=== PATIENT | male | born 1955 | race Caucasian/White ===

== ENCOUNTER 2019-04-18 20:28 | Emergency (ER) | payer OTHER, SELFPAY ==
[2019-04-18 20:33] VITALS: BP 125/81; PULSE 80; RESP 20; TEMP 36.4; O2SAT 98
[2019-04-18] MEDS: LIDOCAINE 1% (PF) 2 ML (21:11)
--- NOTE | 2019-04-18 21:35 | ED.WOUNDLAC ---
HPI - Wound/Laceration General Chief Complaint: Wound/Laceration Stated Complaint: Sliver Time Seen by Provider: 04/18/19 20:35 Source: patient Mode of arrival: ambulatory Limitations: no limitations History of Present Illness HPI narrative: 64-year-old male former smoker with noncontributory medical history presents with an accidental sliver on the volar surface of left forearm. He was working with o'clock we claimed would and felt a sliver puncture his forearm, he says it was imbedded below the surface of the skin and he was able to remove a small portion but feels as if some is still in his arm. He has full range of motion and denies any numbness, tingling or weakness. He states his tetanus is up-to-date Onset (ago): hour(s) Extremity Location: Left: forearm Body four view annotation: 1. Patient tetanus UTD: Yes Context: accidental Associated symptoms: pain Related Data Home Medications Medication Instructions Recorded Confirmed multivitamin [Multiple Vitamins] 1 tab PO QDAY #0 11/04/16 03/28/18 Previous Rx's Medication Instructions Recorded pregabalin [Lyrica] 50 mg PO BID #60 cap 08/05/17 pregabalin [Lyrica] 100 mg PO BID #60 cap 08/05/17 zonisamide 25 mg PO SEE INSTRUCTIONS #24 cap 08/10/17 doxycycline hyclate 100 mg PO BID #20 tab 04/18/19 Allergies Allergy/AdvReac Type Severity Reaction Status Date / Time Penicillins Allergy Severe ANAPHYLAXIS Verified 03/28/18 12:08 Review of Systems Constitutional Constitutional: Denies chills, Denies fatigue, Denies fever(s), Denies frequent falls, Denies lethargy and Denies weakness Eyes Eyes: Denies change in vision, Denies eye discharge, Denies irritation and Denies loss of vision ENT Ears, Nose, Mouth, and Throat: Denies change in voice, Denies dizziness, Denies neck pain, Denies sore throat and Denies throat swelling Cardiovascular Cardiovascular: Denies chest pain, Denies irregular heart rhythm, Denies lightheadedness, Denies palpitations, Denies dyspnea, Denies dyspnea on exertion and Denies orthopnea Respiratory Respiratory: Denies cough, Denies dyspnea, Denies dyspnea on exertion and Denies wheezing Gastrointestinal Gastrointestinal: Denies abdominal pain, Denies change in bowel habits, Denies diarrhea, Denies nausea and Denies vomiting Genitourinary Genitourinary: Denies hematuria, Denies flank pain, Denies urinary incontinence and Denies urinary urgency Musculoskeletal Musculoskeletal: Denies back pain, Denies muscle weakness, Denies neck pain, Denies numbness and Denies tingling Integumentary/Breasts Skin/Breast: Denies pruritus, Denies erythema, Denies rash and Reports wounds Neurologic Neurologic: Denies behavioral changes, Denies confusion, Denies dizziness, Denies frequent falls, Denies loss of vision, Denies numbness, Denies tingling and Denies weakness Psychiatric Psychiatric: Denies anxiety, Denies behavioral changes, Denies confusion, Denies depression, Denies homicidal ideation and Denies suicidal ideation Endocrine Endocrine: Denies fatigue, Denies flushing and Denies palpitations Hematologic/Lymphatic Hematologic/Lymphatic: Denies easy bruising Allergic/Immunologic Allergic/Immunologic: Denies urticaria, Denies throat swelling and Denies wheezing PFSH Family History (Updated 12/21/16 @ 00:00 by Conversion Provider) Father Diabetes mellitus Heart disease Hypertension High cholesterol Mother Diabetes mellitus High cholesterol Social History Smoking Status: Former smoker Family History Father Diabetes mellitus Heart disease Hypertension High cholesterol Mother Diabetes mellitus High cholesterol Social History Smoking Status: Former smoker Exam Narrative Exam Narrative: GEN: AOx3 and in mild distress EYES: Pupils are equal, round, and reactive to light and accommodation. Extraoccular muscles are intact bilaterally. There is no subconjunctival hemorrhage or exudate. CHEST: Lungs are clear to auscultation bilaterally and free of wheezes, rales, or rhonchi. Heart rate is regular rhythm, there are no murmurs, clicks, rubs, or gallops. There is no chest wall tenderness. ABD: Abdomen is soft and nontender. There is no guarding or rebound. Bowel sounds are normal in all 4 quadrants. There is no mass or organomegaly. EXT: Full painless ROM of all extremities with no loss of sensation or strength. SKIN: 1 cm superficial, linear abrasion on forearm with very small puncture. No palpable foreign body noted. Bedside ultrasound does not show any obvious findings. This is an organic material and will not show up on x-ray. Initial Vital Signs Initial Vital Signs: Vital Signs Temperature 97.5 F L 04/18/19 20:33 Pulse Rate 80 04/18/19 20:33 Respiratory Rate 20 04/18/19 20:33 Blood Pressure 125/81 04/18/19 20:33 Pulse Oximetry 98 04/18/19 20:33 Procedures Foreign Body OTHER Time Out Performed: yes Site: left and upper extremity Description of foreign body: other Technique: removal with forceps and bedside ultrasound guidance Confirmed by:: other (On successful, no foreign body obviously noted) Post-procedure exam: awake, alert Neurovascular: normal distal pulse and no change from pre-procedure Course Orders Ordered: Discontinued Medications Lidocaine/Sodium Bicarbonate (Buffered Lidocaine 5ml Syringe) 5 ml INJ NOW ONE Stop: 04/18/19 21:02 Last Admin: 04/18/19 21:11 Dose: Not Given Documented by: [email or web address] Vital Signs Vital signs: Vital Signs - 8 hr 04/18/19 20:33 04/18/19 21:43 Temperature 97.5 F L Pulse Rate 80 67 Respiratory Rate 20 15 Blood Pressure 125/81 120/82 Pulse Oximetry 98 99 MDM - Wound/Laceration MDM Narrative Medical decision making narrative: 64-year-old male reports organic foreign body (wood splinter) and left forearm. This is not palpable, nor visualized on ultrasound. Area anesthetized and lightly, gently probed with blunt needle and forceps, no foreign body noted. Patient placed on antibiotics and given extensive return precautions which she understands fully. Questions answered to his apparent satisfaction Discharge Plan Departure Patient Disposition: Home Clinical Impression: Splinter in skin Discharge Date/Time: 04/18/19 21:40 Instructions: DI for Puncture Wound Activity Restrictions/Additional Instructions: *You have been diagnosed with [wooden splinter in left forearm] *What to do: *Take medications as directed *Follow up with your primary care provider in 2-3 days, call for an appointment. Let them know you were seen in the Emergency Department and that we ask that you be seen in follow up *Return to ER if you should have any new, worsening or concerning symptoms, such as [worsening pain, redness, swelling, drainage or other bothersome symptoms] Prescriptions: New doxycycline hyclate 100 mg tablet 100 mg PO BID Qty: 20 RF: 0 No Action multivitamin [Multiple Vitamins] 1 EACH tablet 1 tab PO QDAY Qty: 0 RF: 0 pregabalin [Lyrica] 50 MG capsule 50 mg PO BID Qty: 60 RF: 5 pregabalin [Lyrica] 100 MG capsule 100 mg PO BID Qty: 60 RF: 5 zonisamide 25 MG capsule 25 mg PO SEE INSTRUCTIONS Qty: 24 RF: 0 Referrals: Cristela Hameed DO [Primary Care Provider] -
[2019-04-18 21:43] VITALS: BP 120/82; PULSE 67; RESP 15; O2SAT 99
== END 2019-04-18 21:40 | disposition home or self-care (01) ==
PROVIDERS: Emergency Provider Emergency Medicine; PCP Family Medicine
DX: T14.8XXA Other injury of unspecified body region, initial encounter (principal); W45.8XXA Other foreign body or object entering through skin, initial encounter
CPT/HCPCS: 99283

== ENCOUNTER → 2019-10-09 18:35 | Outpatient (CLI) | payer OTHER, SELFPAY ==
[2019-10-09 18:53] LABS: Add Manual Diff / Slide Review NO; Basophils Absolute Auto 100 /uL (0-100); Basophils Percent Auto 0.9 % (0-2); Eosinophils Absolute Auto 200 /uL (0-450); Eosinophils Percent Auto 2.8 % (2-4); Hematocrit 44.1 % (41-53); Lymphocytes Absolute Auto 2100 /uL (1100-4500); Mean Corpuscular Hemoglobin 29.8 PG (26-34); Mean Corpuscular Volume 87.5 fL (80-100); Monocytes Absolute Auto 800 /uL (0-900); Monocytes Percent Auto 9.4 % (3-14); Neutrophils Absolute Auto 5100 /uL (1500-7000); Neutrophils Percent Auto 61.9 % (50-75); Platelet Count 269 X10^3/uL (150-400); Red Blood Cell Count 5.04 X10^6/uL (4.5-5.9); Red Cell Distribution Width 14.9 % (11.6-14.8); White Blood Cell Count 8.2 X10^3/uL (4.5-11.0)
[2019-10-09 19:13] LABS: Alanine Aminotransferase 18 IU/L (<50); Albumin 4.7 g/dL (3.5-5.0); Albumin Globulin Ratio 1.4 (1.0-2.8); Alkaline Phosphatase 64 U/L (38-126); Aspartate Aminotransferase 27 IU/L (17-59); BUN Creatinine Ratio 27.1 (6-22); Bilirubin Total 0.4 mg/dL (0.2-1.3); Blood Urea Nitrogen 19 mg/dL (9-20); Calcium 9.5 mg/dL (8.4-10.2); Carbon Dioxide 27 mmol/L (22-32); Chloride 100 mmol/L (98-107); Estimated Glomerular Filt Rate > 60.0 mL/min (>60); Globulin 3.4 g/dL (1.7-4.1); Glucose 96 mg/dL (80-110); HEMOLYSIS < 15 (0-50); Potassium 4.1 mmol/L (3.4-5.1); Sodium 138 mmol/L (137-145); Total Protein 8.1 g/dL (6.3-8.2)
[2019-10-09 19:44] LABS: Prostate Specific Antigen Scrn 0.649 ng/mL (0.1-4.0)
== END ==
PROVIDERS: PCP Family Medicine; Referring Provider Nurse Practitioner; Visit Provider Nurse Practitioner
DX: N42.81 Prostatodynia syndrome (principal)
CPT/HCPCS: 36415; 80053; 85025; G0103

== ENCOUNTER → 2020-09-12 13:00 | Outpatient (CLI) | payer OTHER, SELFPAY ==
[2020-09-12 13:34] LABS: Add Manual Diff / Slide Review NO; Basophils Absolute Auto 100 /uL (0-100); Basophils Percent Auto 0.7 % (0-2); Eosinophils Absolute Auto 300 /uL (0-450); Eosinophils Percent Auto 3.1 % (2-4); Hematocrit 45.6 % (41-53); Hemoglobin 15.1 g/dL (13.5-17.5); Lymphocytes Absolute Auto 2100 /uL (1100-4500); Lymphocytes Percent Auto 24.4 % (25-40); Mean Corpuscular Hemoglobin 28.8 PG (26-34); Mean Corpuscular Volume 87.3 fL (80-100); Monocytes Absolute Auto 800 /uL (0-900); Monocytes Percent Auto 9.2 % (3-14); Neutrophils Absolute Auto 5500 /uL (1500-7000); Neutrophils Percent Auto 62.6 % (50-75); Platelet Count 236 X10^3/uL (150-400); Red Blood Cell Count 5.23 X10^6/uL (4.5-5.9); Red Cell Distribution Width 15.3 % (11.6-14.8); White Blood Cell Count 8.8 X10^3/uL (4.5-11.0)
[2020-09-12 13:39] LABS: Alanine Aminotransferase 21 IU/L (<50); Albumin 4.6 g/dL (3.5-5.0); Albumin Globulin Ratio 1.4 (1.0-2.8); Alkaline Phosphatase 65 U/L (38-126); Aspartate Aminotransferase 29 IU/L (17-59); BUN Creatinine Ratio 22.9 (6-22); Bilirubin Total 0.4 mg/dL (0.2-1.3); Blood Urea Nitrogen 16 mg/dL (9-20); Calcium 9.5 mg/dL (8.4-10.2); Carbon Dioxide 33 mmol/L (22-32); Chloride 100 mmol/L (98-107); Estimated Glomerular Filt Rate > 60.0 mL/min (>60); Globulin 3.4 g/dL (1.7-4.1); Glucose 92 mg/dL (80-110); HEMOLYSIS < 15 (0-50); Lipase 89 U/L (23-300); Potassium 4.4 mmol/L (3.4-5.1); Sodium 135 mmol/L (137-145)
[2020-09-12 14:34] LABS: Prostate Specific Antigen 0.765 ng/mL (0.10-4.00)
== END ==
PROVIDERS: PCP Internal Medicine; Visit Provider Nurse Practitioner
DX: R10.9 Unspecified abdominal pain (principal)
CPT/HCPCS: 36415; 80053; 83690; 84153; 85025; 87086

== ENCOUNTER → 2020-09-13 14:45 | Outpatient (CLI) | payer OTHER, SELFPAY ==
--- NOTE | 2020-09-13 14:47 | DI.CT.S_ITS ---
PROCEDURE: CT ABDOMEN PELVIS W CON INDICATIONS: Lower abdominal pain TECHNIQUE: After the administration of oral and intravenous contrast, 5 mm thick sections acquired from the diaphragms to the symphysis. 5 mm thick coronal and sagittal reformats were performed. For radiation dose reduction, the following was used: automated exposure control, adjustment of mA and/or kV according to patient size. COMPARISON: None. FINDINGS: Image quality: Excellent. ABDOMEN: Lung bases: Lung bases are clear. Heart size is normal. Solid organs: Liver is normal in size and enhancement. Gallbladder appears normal. Biliary system is non-dilated. Pancreas enhances normally. Spleen is normal in size and enhancement. A 1.8 cm hypoattenuating lesion in the spleen is nonspecific but may represent a benign cyst or hemangioma or the sequela of prior infarct, which does not appear significantly changed in size when compared to the CT from 06/01/2014. No adrenal nodules. The left kidney is absent. No mass is seen in the left renal fossa. The right kidney is mildly hypertrophied. There is no hydronephrosis. Peritoneum and bowel: Stomach, small bowel, and colon loops are normal in caliber and wall thickness. Normal appendix. No free fluid or air. Nodes and vessels: No retroperitoneal or mesenteric adenopathy. Aorta and inferior vena cava are normal in caliber. Miscellaneous: No ventral hernias. PELVIS: Genitourinary: Bladder wall thickness is normal. Coarse calcifications are noted in the prostate. There is a cystic appearance of the left seminal vesicle. Miscellaneous: No inguinal hernias or adenopathy. Bones: No suspicious bony lesions. No vertebral body compression fractures. There is grade 1 anterolisthesis of L3 on L4. Mild multilevel degenerative changes are seen in the included spine. Degenerative changes are seen in the hips including full-thickness joint space narrowing in the anterosuperior right hip. IMPRESSION: 1. No acute abnormality is identified in abdomen or pelvis. 2. 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 3. Severe right hip osteoarthrosis. 4. Grade 1 anterolisthesis of L3 on L4. Mild multilevel degenerative changes. Dictated by: Flo Funk M.D. on 09/13/2020 at 16:27 Approved by: Flo Funk M.D. on 09/13/2020 at 16:36
== END ==
PROVIDERS: PCP Internal Medicine; Referring Provider Internal Medicine; Visit Provider Nurse Practitioner
DX: R10.30 Lower abdominal pain, unspecified (principal); M16.11 Unilateral primary osteoarthritis, right hip; M43.16 Spondylolisthesis, lumbar region; M47.816 Spondylosis without myelopathy or radiculopathy, lumbar region
CPT/HCPCS: 74177; Q9967

== ENCOUNTER 2022-01-17 16:09 | Emergency (ER) | payer OTHER, SELFPAY ==
[2022-01-17 16:38] VITALS: BP 126/84; PULSE 83; RESP 18; TEMP 36.6; O2SAT 98; BMI 25.1
[2022-01-17] MEDS: ACETAMINOPHEN 325 MG TABLET 975 MG PO (19:57)
[2022-01-17] MEDS: LIDOCAINE PATCH 1 EACH ADH..PATCH TOP (19:59)
[2022-01-17] MEDS: KETOROLAC 30 MG/ML VIAL 15 MG IM (19:59)
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
== END 2022-01-17 20:12 | disposition home or self-care (01) ==
PROVIDERS: Emergency Provider Nurse Practitioner Critical Care Medicine; PCP Internal Medicine
DX: M25.551 Pain in right hip (principal); M25.561 Pain in right knee; M62.838 Other muscle spasm; M77.9 Enthesopathy, unspecified; V89.2XXA Person injured in unspecified motor-vehicle accident, traffic, initial encounter
CPT/HCPCS: 96372; 99283; J1885

== ENCOUNTER → 2022-02-03 11:46 | Outpatient (CLI) | payer OTHER, SELFPAY ==
[2022-02-03 14:16] LABS: Alanine Aminotransferase 21 IU/L (<50); Albumin 4.5 g/dL (3.5-5.0); Albumin Globulin Ratio 1.7 (1.0-2.8); Alkaline Phosphatase 56 U/L (38-126); Aspartate Aminotransferase 27 IU/L (17-59); BUN Creatinine Ratio 16.4 (6-22); Bilirubin Total 0.3 mg/dL (0.2-1.3); Blood Urea Nitrogen 12 mg/dL (9-20); Calcium 8.8 mg/dL (8.4-10.2); Carbon Dioxide 31 mmol/L (22-32); Chloride 102 mmol/L (98-107); Cholesterol 203 mg/dL (140-199); Estimated Glomerular Filt Rate > 60 mL/min (>60); Globulin 2.7 g/dL (1.7-4.1); Glucose 92 mg/dL (80-110); HDL Cholesterol 54 mg/dL (40-60); HEMOLYSIS < 15 (0-50); LDL Cholesterol Calculated 134 mg/dL (<100); Potassium 4.5 mmol/L (3.4-5.1); Sodium 138 mmol/L (137-145); Total Protein 7.2 g/dL (6.3-8.2); Triglycerides 74 mg/dL (35-150)
[2022-02-03 14:48] LABS: Prostate Specific Antigen Scrn 0.538 ng/mL (0.1-4.0)
== END ==
PROVIDERS: PCP Internal Medicine; Referring Provider Internal Medicine; Visit Provider Internal Medicine
DX: Z13.220 Encounter for screening for lipoid disorders (principal); Z13.6 Encounter for screening for cardiovascular disorders; Z79.899 Other long term (current) drug therapy; Z12.5 Encounter for screening for malignant neoplasm of prostate
CPT/HCPCS: 36415; 80053; 80061; G0103

== ENCOUNTER → 2022-03-18 09:13 | Outpatient (CLI) | payer OTHER, SELFPAY ==
[2022-03-18 11:22] LABS: COVID19 -Nasal RAPID Negative (Negative)
== END ==
PROVIDERS: PCP Internal Medicine; Visit Provider Surgery
DX: Z01.812 Encounter for preprocedural laboratory examination (principal); Z20.822 Contact with and (suspected) exposure to COVID-19
CPT/HCPCS: 87635; C9803

== ENCOUNTER 2022-03-19 07:30 | Day surgery (SDC) | payer OTHER, SELFPAY ==
--- NOTE | 2022-03-19 | PATH_ITS ---
[facility] Accession Number: [id number] . 01 Material submitted: . colon - TRANSVERSE COLON POLYPS X2 . 01 Diagnosis: Transverse Colon, Polyps x2, Biopsies: Tubular adenoma in 1 of 3 fragments. Additional levels were examined. [facility] 03/24/2022 1306 Local . 01 Electronically signed: . Sagrario Chatterjee MD, Pathologist NPI- [id number] . 01 Gross description: . TRANSVERSE COLON POLYPS X2: Received in formalin are 3 fragment(s) of hope, soft tissue measuring 0.2 x 0.2 x 0.2 cm to 0.3 x 0.3 x 0.3 cm submitted entirely in 1 cassette(s) /KEVIN 03/20/2022 0032 Local . 01 Pathologist provided ICD-10: D12.3 . 01 CPT . 613741 Specimen Comment: A courtesy copy of this report has been sent to [phone] Performed at: 01 [facility] [address] [place] [address] [address], [place], [place] [id number] MD Pradeep Mendes MD Phone: [phone]
[2022-03-19 08:13] VITALS: BP 133/89; PULSE 73; RESP 16; TEMP 36.7; O2SAT 99
[2022-03-19 08:16] VITALS: BMI 27.3
[2022-03-19] MEDS: LACTATED RINGERS 1,000 ML 100 ML IV (08:28)
--- NOTE | 2022-03-19 09:09 | PM.HP.1 ---
History of Present Illness History of Present Illness Date Patient Seen: 03/19/22 Time Patient Seen: 09:09 Chief complaint: SDC Narrative: Barney is a 66-year-old man who is here for colonoscopy. His last was about 5 years ago in 2 polyps were removed. He does not have any known family history of colon cancer. Patient History Medical History Peripheral neuropathy Right shoulder pain Solitary right kidney Surgical History No pertinent past surgical history Family & Social History Family History Father Diabetes mellitus Heart disease Hypertension High cholesterol Mother Diabetes mellitus High cholesterol Social History: household members spouse Tobacco & Substance use: Tobacco type cannabis/marijuana Smoking Status Current some day smoker alcohol intake never Substance Use Type marijuana Meds Home Medications and Allergies Home Medications Medication Instructions Recorded Confirmed Type saw palmetto 250 mg capsule See Rx Instructions PO DAILY 10/19/19 03/19/22 History albuterol sulfate 90 mcg/actuation 2 puff inhalation Q4-6H PRN 02/21/22 03/19/22 Rx aerosol inhaler (ProAir HFA) shortness of breath or wheezing #8.5 grams Allergies Allergy/AdvReac Type Severity Reaction Status Date / Time Penicillins Allergy Severe ANAPHYLAXIS Verified 03/19/22 08:11 ciprofloxacin AdvReac Severe tendon Verified 03/19/22 08:11 rupture Exam Vital Signs (past 8 hours): - 03/19/22 08:13 Temperature 98.1 F Pulse Rate 73 Respiratory Rate 16 Blood Pressure 133/89 Pulse Oximetry 99 Oxygen Delivery Method Room Air Oxygen Delivery Method Room Air Const General: comfortable Resp Effort & Inspection: normal respiratory effort GI Palpation: soft Assessment & Plan Assessment and plan (1) History of colon polyps: Status: Acute Plan Barney is a 66-year-old man who is due for a colonoscopy due to a history of polyps. We reviewed the risks and benefits and he would like to proceed. Time Spent With Patient Critical Care time: I spent a total of [] minutes of critical care time on this patient's care today; this time is exclusive of procedural time.
[2022-03-19] MEDS: MIDAZOLAM 5 MG/5 ML VIAL IV (09:21)
[2022-03-19] MEDS: fentaNYL 250 MCG/5 ML INJ 125 MCG IV (09:21)
--- NOTE | 2022-03-19 09:33 | PM.OP.COLON ---
Operative Date/Time/Diagnoses Date of procedure: 03/19/22 Time of procedure: 09:33 Pre-op diagnosis: History of colon polyps Post-op diagnosis: same Procedure & Clinicians Study performed: Colonoscopy Same procedure as scheduled: Yes Surgeon: Ganesh Woods Procedure Notes Procedure in detail: Surgeon: Ganesh Woods MD Procedure: The patient was brought to the endoscopy suite, placed in left lateral decubitus position. The patient was connected to monitoring devices. A time-out was performed. Sedation was administered. Once the patient was adequately sedated, a digital rectal exam was performed and was normal except for some external hemorrhoids. The scope was then inserted and advanced to the cecum where the appendiceal orifice was identified and photographed. The scope was then slowly withdrawn over greater than 6 minutes. The mucosa was thoroughly inspected. There were 2 small polyps in the transverse colon each 4 mm and each removed with Jumbo forceps. There were sent together. The scope was retroflexed in the rectum. There were mild internal hemorrhoids but no other abnormalities. The scope was straightened and removed. The patient was awakened and brought to recovery. Versed: 5 mg Fentanyl: 125 mcg EBL: 5 mL Findings: 2 small polyps in the transverse colon Scope withdrawal time: 7 Sedation minutes: 18 Post-procedure Recommendations: Will call with biopsy results Disposition: PACU
[2022-03-19 09:38] VITALS: BP 112/82; PULSE 64; RESP 10; TEMP 36.3; O2SAT 94
[2022-03-19 09:43] VITALS: BP 113/78; PULSE 62; RESP 12; O2SAT 98
[2022-03-19 09:48] VITALS: BP 116/86; PULSE 65; RESP 14; O2SAT 94
[2022-03-19 09:53] VITALS: BP 119/80; PULSE 66; RESP 14; O2SAT 94
[2022-03-19 10:00] VITALS: BP 120/87; PULSE 55; RESP 16; O2SAT 97
== END 2022-03-19 10:17 | disposition home or self-care (01) ==
PROVIDERS: PCP Internal Medicine; Referring Provider Surgery; Visit Provider Surgery
PROC: 0DJD8ZZ Inspection of Lower Intestinal Tract, Via Natural or Artificial Opening Endoscopic (ICD-10-PCS; CPT 45378; principal; 2022-03-19 09:15)
DX: Z12.11 Encounter for screening for malignant neoplasm of colon (principal); Z86.010 Personal history of colon polyps; K64.8 Other hemorrhoids; D12.3 Benign neoplasm of transverse colon
CPT/HCPCS: 45380; 99152; J2250; J3010

== ENCOUNTER → 2022-04-17 10:22 | Outpatient (CLI) | payer OTHER, SELFPAY ==
[2022-04-17 11:10] LABS: COVID19 -Nasal RAPID Negative (Negative)
== END ==
PROVIDERS: PCP Internal Medicine; Referring Provider Internal Medicine; Visit Provider Internal Medicine
DX: Z20.822 Contact with and (suspected) exposure to COVID-19 (principal)
CPT/HCPCS: 87635; C9803

== ENCOUNTER → 2022-04-17 10:23 | Outpatient (CLI) | payer MEDICARE, OTHER, SELFPAY ==
--- NOTE | 2022-04-22 09:17 | PM.PFT.1 ---
Pulmonary Function Test Referral & Results Date Patient Seen: 04/17/22 Requesting provider: Nikolas Benoit Results: The spirometry demonstrates an FVC of 3.79 L which is 85% of predicted. The FEV1 was measured at 2.39 L which is 72% of predicted. The FEV1/FVC ratio was 63 which is 84% of predicted. Following the administration of bronchodilator there was a 10% improvement in FEV 1 and a 45% improvement in FEF 25-75%. Lung volumes show an SVC of 4.24 L which is 93% of predicted. The diffusing capacity was measured at 26.42 which is 85% of predicted. The maximum voluntary ventilation was minimally reduced if at all Interpretation: This study demonstrates possibly very mild obstructive lung disease based on reduction FEV1 and borderline reduction FEV1/FVC ratio. There is some evidence of minimal improvement following bronchodilator administration particularly small airway flow as above Clinical correlation suggested
== END ==
PROVIDERS: PCP Internal Medicine; Referring Provider Internal Medicine; Visit Provider Internal Medicine
DX: R06.00 Dyspnea, unspecified (principal); R06.02 Shortness of breath; Z87.891 Personal history of nicotine dependence; Z20.822 Contact with and (suspected) exposure to COVID-19; J98.8 Other specified respiratory disorders
CPT/HCPCS: 87635; 94060; 94726; 94729; C9803

== ENCOUNTER → 2023-05-15 09:27 | Outpatient (CLI) | payer OTHER, SELFPAY ==
[2023-05-15 10:42] LABS: Cholesterol 206 mg/dL (140-199); HDL Cholesterol 54 mg/dL (40-60); LDL Cholesterol Calculated 133 mg/dL (<100); Triglycerides 93 mg/dL (35-150)
[2023-05-15 11:15] LABS: Prostate Specific Antigen Scrn 0.832 ng/mL (0.1-4.0)
== END ==
PROVIDERS: PCP Internal Medicine; Referring Provider Internal Medicine; Visit Provider Internal Medicine
DX: Z13.6 Encounter for screening for cardiovascular disorders (principal); Z12.5 Encounter for screening for malignant neoplasm of prostate
CPT/HCPCS: 36415; 80061; G0103

== ENCOUNTER → 2023-05-18 13:16 | Outpatient (CLI) | payer OTHER, SELFPAY ==
--- NOTE | 2023-05-18 14:18 | PM.TREADMILL ---
Cardiac Stress Test Report Referral & Results Date Patient Seen: 05/18/23 Time Patient Seen: 14:19 Indication: Chest pain, follow-up ER Rest ECG: Unremarkable Procedure Note: Today following both written and verbal informed consent, the patient was exercised according to a standard [facility] protocol. The patient exercised for a total of 9 minutes 43 seconds achieving a maximum heart rate of 146. Patient's maximum systolic blood pressure was 170. This was an estimated 10.1 MET's. Test was discontinued due to patient fatigue and inability to keep up. Targets were met. Heart rate and blood pressure responses were normal There were no ST-T segment changes Very rare PVCs noted Functional aerobic impairment rates approximately -25% on the active scale Impression: No evidence of ischemia. Excellent exercise capacity Please note: Actual ECG tracings can be found in the PACS system.
== END ==
PROVIDERS: PCP Internal Medicine; Referring Provider Internal Medicine; Visit Provider Internal Medicine
DX: R07.9 Chest pain, unspecified (principal)
CPT/HCPCS: 93017

== ENCOUNTER → 2024-06-08 16:48 | Outpatient (CLI) | payer MEDICARE, SELFPAY ==
--- NOTE | 2024-06-08 16:50 | DI.RAD.S_ITS ---
PROCEDURE: XR HIP W PEL IF DONE RT 2V INDICATIONS: r hip pain TECHNIQUE: AP pelvis with lateral view(s) of the right hip(s). COMPARISON: None. FINDINGS: Bones: No fractures or dislocations. Pelvic ring appears intact. No suspicious bony lesions. Bony protuberance of the femoral necks. Nonuniform joint space narrowing and osteophytic lipping of the acetabuli. Subchondral cystic change without bony deformity of the right hip. Soft tissues: The visualized bowel gas pattern is normal. No suspicious soft tissue calcifications. IMPRESSION: Moderate to severe right hip osteoarthritis. Kellgren-Florencio Grade 3. Dictated by: Jerson Kazt M.D. on 06/09/2024 at 17:00 Approved by: Jerson Katz M.D. on 06/09/2024 at 17:01
== END ==
LOC: RAD 16:49
PROVIDERS: PCP Family Medicine; Referring Provider Family Medicine; Visit Provider Family Medicine
DX: M16.11 Unilateral primary osteoarthritis, right hip (principal); M25.551 Pain in right hip; G62.9 Polyneuropathy, unspecified
CPT/HCPCS: 73502

== ENCOUNTER → 2024-07-08 11:32 | Outpatient (CLI) | payer MEDICARE, SELFPAY ==
[2024-07-08 13:26] LABS: Add Manual Diff / Slide Review NO; Basophils Absolute Auto 100 /uL (0-100); Eosinophils Absolute Auto 200 /uL (0-450); Eosinophils Percent Auto 3.4 % (2-4); Hemoglobin 16.4 g/dL (13.5-17.5); Lymphocytes Absolute Auto 2100 /uL (1100-4500); Lymphocytes Percent Auto 33.3 % (25-40); Mean Corpuscular HGB Conc 33.4 % (30-36); Mean Corpuscular Hemoglobin 29.4 PG (26-34); Mean Corpuscular Volume 87.9 fL (80-100); Monocytes Absolute Auto 600 /uL (0-900); Monocytes Percent Auto 8.6 % (3-14); Neutrophils Absolute Auto 3400 /uL (1500-7000); Neutrophils Percent Auto 53.7 % (50-75); Platelet Count 240 X10^3/uL (150-400); Red Blood Cell Count 5.57 X10^6/uL (4.5-5.9); White Blood Cell Count 6.4 X10^3/uL (4.5-11.0)
[2024-07-08 13:42] LABS: Alanine Aminotransferase 22 IU/L (<50); Albumin 4.6 g/dL (3.5-5.0); Albumin Globulin Ratio 1.7 (1.0-2.8); Alkaline Phosphatase 59 U/L (38-126); Aspartate Aminotransferase 31 IU/L (17-59); Bilirubin Total 0.6 mg/dL (0.2-1.3); Blood Urea Nitrogen 16 mg/dL (9-20); Calcium 9.3 mg/dL (8.4-10.2); Carbon Dioxide 29 mmol/L (22-32); Chloride 102 mmol/L (98-107); Estimated Glomerular Filt Rate > 60 mL/min (>60); Globulin 2.7 g/dL (1.7-4.1); Glucose 89 mg/dL (80-110); HEMOLYSIS < 15 (0-50); Potassium 4.9 mmol/L (3.4-5.1); Sodium 138 mmol/L (137-145); Total Protein 7.3 g/dL (6.3-8.2)
[2024-07-08 14:13] LABS: Prostate Specific Antigen Scrn 1.02 ng/mL (0.1-4.0)
[2024-07-08 14:32] LABS: Vitamin B12 396 pg/mL (239-931)
== END ==
LOC: LAB 11:34
PROVIDERS: PCP Family Medicine; Referring Provider Family Medicine; Visit Provider Family Medicine
DX: Z00.00 Encounter for general adult medical examination without abnormal findings; Z12.5 Encounter for screening for malignant neoplasm of prostate; G62.9 Polyneuropathy, unspecified; N40.1 Benign prostatic hyperplasia with lower urinary tract symptoms; N13.8 Other obstructive and reflux uropathy
CPT/HCPCS: 36415; 80053; 82607; 85025; G0103

== ENCOUNTER → 2024-07-10 17:15 | Outpatient (CLI) | payer MEDICARE, SELFPAY ==
--- NOTE | 2024-07-10 17:16 | DI.RAD.S_ITS ---
PROCEDURE: XR SHOULDER RT MIN 2V INDICATIONS: R shoulder eval TECHNIQUE: Three views of the shoulder were acquired. COMPARISON: None. FINDINGS: Bones: Marked superior subluxation of the humeral head suggests recurrent rotator cuff tear/impingement. Metallic screws are seen in the lateral aspect of the anatomic neck of humerus presumably for prior rotator cuff repair. Acromioclavicular and glenohumeral joints: Normal in width and alignment without arthritic change Soft tissues: No soft tissue swelling, calcification or mass. IMPRESSION: Marked superior humeral subluxation supportive of recurrent rotator cuff tear. Dictated by: Nikolas Pastrana M.D. on 07/11/2024 at 10:04 Approved by: Nikolas Pastrana M.D. on 07/11/2024 at 10:06
== END ==
LOC: RAD 17:16
PROVIDERS: PCP Family Medicine; Referring Provider Family Medicine; Visit Provider Family Medicine
DX: S43.001A Unspecified subluxation of right shoulder joint, initial encounter (principal); M25.511 Pain in right shoulder
CPT/HCPCS: 73030

== ENCOUNTER → 2024-09-20 14:32 | Outpatient (CLI) | payer MEDICARE, SELFPAY ==
--- NOTE | 2024-09-20 14:33 | DI.RAD.S_ITS ---
PROCEDURE: XR CHEST 2V INDICATIONS: Cough TECHNIQUE: 2 views of the chest were acquired. COMPARISON: [facility], CR, XR CHEST 1 VIEW, 05/03/2023, 14:02. FINDINGS: Surgical changes and devices: None. Lungs and pleura: Linear atelectasis versus scarring at the right lung base. The lungs are otherwise clear No pleural effusions or pneumothorax. Mediastinum: Mediastinal contours are normal. Heart size is normal. Bones and chest wall: No suspicious bony abnormalities. Soft tissues appear unremarkable. IMPRESSION: Linear atelectasis versus scarring at the right lung base. The lungs are otherwise clear. Dictated by: Surinder Appiah M.D. on 09/20/2024 at 15:03 Approved by: Surinder Appiah M.D. on 09/20/2024 at 15:04
== END ==
PROVIDERS: PCP Family Medicine; Referring Provider Nurse Practitioner Family; Visit Provider Nurse Practitioner Family
DX: R05.9 Cough, unspecified (principal)
CPT/HCPCS: 71046

== ENCOUNTER → 2025-06-07 10:13 | Outpatient (CLI) | payer MEDICARE, SELFPAY ==
--- NOTE | 2025-06-07 10:14 | DI.US.S_ITS ---
PROCEDURE: US EXTREMELY NONVASC UPPER RT INDICATIONS: foreign body TECHNIQUE: Real-time scanning was performed of the right forearm, with image documentation. COMPARISON: None. FINDINGS: Focused ultrasound examination of anterior medial aspect of right forearm at the area of concern shows no discrete soft tissue mass or drainable fluid collection. IMPRESSION: No abnormality is seen in right forearm soft tissue at the area of concern. Dictated by: Eliot Dominguez M.D. on 06/07/2025 at 14:54 Approved by: Eliot Dominguez M.D. on 06/07/2025 at 14:55
== END ==
LOC: US 10:13
PROVIDERS: PCP Family Medicine; Referring Provider Family Medicine; Visit Provider Family Medicine
DX: S50.851A Superficial foreign body of right forearm, initial encounter (principal); X58.XXXA Exposure to other specified factors, initial encounter
CPT/HCPCS: 76882

== ENCOUNTER → 2025-07-05 07:42 | Outpatient (CLI) | payer MEDICARE, SELFPAY | LOC: PHYS 07:43 | PROVIDERS: Family Provider Family Medicine; PCP Family Medicine; Referring Provider Family Medicine; Visit Provider Family Medicine | DX: G56.03 Carpal tunnel syndrome, bilateral upper limbs (principal) | CPT/HCPCS: 95885; 95886; 95910 ==

== ENCOUNTER 2025-07-23 07:09 | Day surgery (SDC) | payer MEDICARE, SELFPAY ==
--- NOTE | 2025-07-22 12:48 | EKG_ITS ---
[address] [address] Test Date: 2025-07-23 Pat Name: Barney Franz Department: Room: Gender: Male [employer]: Claribel HALL : 1955 Requested By: Order Number: [id number] Reading MD: Nikolas Benoit MD Measurements Intervals [place] Rate: 64 P: 71 MO: 176 QRS: -4 QRSD: 76 T: 67 QT: 392 QTc: 404 Interpretive Statements Normal sinus rhythm Electronically Signed On 07-23-2025 16:03:30 PST by Nikolas Benoit MD
[2025-07-23] MEDS: LACTATED RINGERS 1,000 ML 42 ML IV (07:28)
--- NOTE | 2025-07-23 07:42 | PM.PREOP ---
Pre-operative Note COVID-19 COVID-19 status: Not tested Interval Note History & Physical reviewed/Exam performed by Physician: Yes Changes to H&P: No
[2025-07-23] MEDS: ACETAMINOPHEN 325 MG TABLET 975 MG PO (07:43)
[2025-07-23 07:57] VITALS: BP 123/78; PULSE 68; RESP 21; TEMP 36.6; O2SAT 97
[2025-07-23] MEDS: ALBUTEROL/IPRATROPIUM 3 ML AMPUL INH (08:18)
[2025-07-23] MEDS: CLINDAMYCIN 900 MG/50 ML PIGGYBACK 50 MG IV (09:07)
--- NOTE | 2025-07-23 09:27 | SUR.OPER ---
Supine on padded OR bed, head on pillow, non operative arm secured on padded arm boards at <90 degrees abduction, operative side on padded hand table, legs uncrossed, safety belt at thigh, tape over blanket over lower legs. All pressure points padded and protected.
[2025-07-23 10:07] VITALS: BP 132/83; PULSE 67; RESP 20; TEMP 36.4; O2SAT 98
--- NOTE | 2025-07-23 10:11 | P.OP_ITS ---
Operative Date/Time/Diagnoses Date of procedure: 07/23/25 Time of procedure: 09:30 Pre-op diagnosis: LEFT THUMB FOREIGN BODY AND LEFT CARPAL TUNNEL SYNDROME Post-op diagnosis: other (LEFT CARPAL TUNNEL SYNDROME AND GRANULOMA LEFT THUMB) Procedure & Clinicians Procedure: OPEN CARPAL TUNNEL RELEASE EXCISIONAL BIOPSY OF LEFT THUMB GRANULOMA Same procedure(s) as scheduled: No Surgeon: Sagrario Matthew Assisted?: Yes [employer] Worker: Lenora Lincoln Anesthesia Type: General Operative Notes Findings: SEE BELOW Closure Type: primary Specimen(s): other (CULTURE SWAB SENT AND TISSUE FOR PATH OF LEFT THUMB GRANULOMA) Applied: none Estimated Blood Loss (mL): 5 Blood products transfused: none Tourniquet time (min): 37 Procedure in detail: Primary Surgeon: Sagrario Matthew DO Assistnat: Lenora CASTILLO-Rupa Anesthesia: General EBL: 5 ml Tourniquet:37 minutes @ 250 mmHg Procedure in Detail: The patient was met in the pre-operative hold area. Consent was verified and operative extremity was signed. The patient then met with anesthesia and was brought back to the operating room. The patient was placed supine on the operating table. Anesthetic was administered. The extremity was then prepped and draped in the usual sterile fashion. A timeout was performed per protocol. A transverse incision was made overlying the palpable mass in the left thumb. Dissection was taken down to a firm mass. A proximal limb was made to gain additional exposure. This was excised. During excision the mass was punctured and cottage cheese type material was expressed. THe mass was removed in its entiretly and the wound was explored. There were no foreign bodies. The wound was copiously irrigated. A 3cm longitudinal incision was made in line with the ulnar border of the ring finger starting at Bailey's Cardinal line distally. This was just radial to the hook of the hamate. Sharp dissection was brought down through the palmar fascia. Retractors were placed. The transverse carpal ligament was identified and a knife was used to incise it longitudinally until fat was seen distally in the palm. Tenotomy scissors were then used to create a pocket just superficial to the transverse carpal ligament and a freer was placed. The scissors were then placed deep to the ligament to bluntly separate the contents of the canal from ligament. I then pointed the tips of the scissors ulnarly and completed the release 2 cm into the antebrachial fascia. A freer elevator was used to confirm complete release both proximally and distally. The wounds were then irrigated copiously and closed with 4-0 nylon in a horizontal mattress configuration. A sterile bulky dressing was applied. Complications: none Post-operative Condition: stable Disposition: PACU
[2025-07-23 10:13] VITALS: BP 129/86; PULSE 67; RESP 11; TEMP 36.3; O2SAT 93
[2025-07-23 10:18] VITALS: BP 131/84; PULSE 69; RESP 15; TEMP 36.6; O2SAT 92
[2025-07-23 10:26] VITALS: BP 135/89; PULSE 75; RESP 13; TEMP 36.7; O2SAT 98
[2025-07-23 10:33] VITALS: BP 133/75; PULSE 74; RESP 15; TEMP 36.6; O2SAT 97
== END 2025-07-23 10:46 | disposition home or self-care (01) ==
PROVIDERS: Family Provider Family Medicine; PCP Family Medicine; Referring Provider Family Medicine; Visit Provider Orthopaedic Surgery
PROC: (CPT 64721; principal; 2025-07-23 09:00)
DX: G56.02 Carpal tunnel syndrome, left upper limb (principal); L92.9 Granulomatous disorder of the skin and subcutaneous tissue, unspecified
CPT/HCPCS: 20525; 64721; 87070; 87075; 87205; 93005; 93010; J1100; J2405; J2704; J3010; J7120

== ENCOUNTER 2025-08-08 07:06 | Day surgery (SDC) | payer MEDICARE, SELFPAY ==
[2025-07-16 13:16] VITALS: BMI 25.8
[2025-08-02 09:50] VITALS: BMI 25.8
[2025-08-08 07:19] VITALS: BP 132/80; PULSE 64; RESP 16; TEMP 36.5; O2SAT 99
--- NOTE | 2025-08-08 07:22 | PM.PREOP ---
Pre-operative Note COVID-19 COVID-19 status: Not tested Interval Note History & Physical reviewed/Exam performed by Physician: Yes Changes to H&P: No
[2025-08-08] MEDS: LACTATED RINGERS 1,000 ML 42 ML IV (07:33)
[2025-08-08] MEDS: LIDOCAINE 1% 20 ML INJ (07:55)
[2025-08-08] MEDS: CLINDAMYCIN 900 MG/50 ML PIGGYBACK 50 MG IV (08:00)
--- NOTE | 2025-08-08 08:19 | SUR.OPER ---
Supine on padded OR bed, head on pillow, arms secured on padded arm boards at <90 degrees abduction, legs uncrossed, safety belt at thigh, tape over blanket over lower legs. right arm prepped into field on arm table
[2025-08-08 08:29] VITALS: BP 131/87; PULSE 62; RESP 20; TEMP 36.5; O2SAT 99
--- NOTE | 2025-08-08 08:34 | SUR.OPER ---
Local anesthesia procedure note: pt brought to room vitals 0750 HR 61, 95% on Room Air, BP 124/80 placed on 2L for the procedure Clindamycin started at 0800 Tourniquet up at 0805 Vitals 0810 HR 62, 99% 2L, BP 125/82 Vitals 0820 HR 61, 98%2L, BP 117/72 tourniquet down at 0820 out of room at 0821 to PACU
--- NOTE | 2025-08-08 08:36 | P.OP_ITS ---
Operative Date/Time/Diagnoses Date of procedure: 08/08/25 Time of procedure: 08:05 Pre-op diagnosis: Carpal tunnel syndrome right Post-op diagnosis: same Procedure & Clinicians Procedure: Open right carpal tunnel release Same procedure(s) as scheduled: Yes Surgeon: Sagrario Matthew Assisted?: Yes Manager Branch: [place] Anesthesia Type: Local Operative Notes Findings: see below Closure Type: primary Specimen(s): none sent Applied: none Estimated Blood Loss (mL): 3 Tourniquet time (min): 19 Procedure in detail: Preoperative diagnosis: Carpal Tunnel Syndrome Procedure performed: Carpal Tunnel Release, Open Postoperative diagnosis: Same Primary Surgeon: Sagrario Matthew, Assistnat: Zoë Lopez PA-C Anesthesia: Local EBL: 1 ml Tourniquet: 19 minutes @ 200 mmHg Indication For Surgery: Patient presented with signs and symptoms of carpal tunnel syndrome.? Conservative treatment did not result in adequate symptom improvement. The risks, benefits, and alternatives were discussed. Risks include pain, bleeding, infection, damage to nearby structures, pillar pain, wound healing complications, thumb weakness, numbness, lack of symptom relief, need for further surgery, DVT, PE, stroke, and . Written consent was obtained. Operative Findings: Thickened transverse carpal ligament was released.? No carpal tunnel masses. Procedure in Detail: The patient was met in the pre-operative hold area. Consent was verified and operative extremity was signed. The patient then met with anesthesia and was brought back to the operating room. The patient was placed supine on the operating table. Loca Anesthetic was administered. The extremity was then prepped and draped in the usual sterile fashion. A timeout was performed per protocol. All were in agreement local anesthesia was injected (8 cc of 1% lidocaine plain/0.25% Marcaine). A 3cm longitudinal incision was made in line with the ulnar border of the ring finger starting at Bailey's Cardinal line distally. This was just radial to the hook of the hamate. Sharp dissection was brought down through the palmar fascia. Retractors were placed. The transverse carpal ligament was identified and a knife was used to incise it longitudinally until fat was seen distally in the palm. Tenotomy scissors were then used to create a pocket just superficial to the transverse carpal ligament and a freer was placed. The scissors were then placed deep to the ligament to bluntly separate the contents of the canal from ligament. I then pointed the tips of the scissors ulnarly and completed the release 2 cm into the antebrachial fascia. A freer elevator was used to confirm complete release both proximally and distally. The wound was then irrigated copiously and closed with 3-0 nylon in a horizontal mattress configuration. A sterile bulky dressing was applied. Complications: none Post-operative Condition: stable Disposition: PACU
== END 2025-08-08 08:47 | disposition home or self-care (01) ==
PROVIDERS: Family Provider Family Medicine; PCP Family Medicine; Referring Provider Orthopaedic Surgery; Visit Provider Orthopaedic Surgery
PROC: (CPT 64721; principal; 2025-08-08 07:45)
DX: G56.01 Carpal tunnel syndrome, right upper limb (principal)
CPT/HCPCS: 64721; J7120